=== PATIENT | female | born 1960 | race Caucasian/White ===

== ENCOUNTER 2017-07-17 18:16 | Observation (INO) | payer OTHER ==
[~2017-07-17] VITALS: Ht 167.6 cm; Wt 89.4 kg
[~2017-07-17 18:16] MED LIST: IBUPROFEN400 MG PO; LOESTRIN 1/21 TABLET PO
[2017-07-17 19:31] LABS: HEMATOCRIT 41.1 % (36.0-46.0); HEMOGLOBIN 14.8 G/DL (11.9-15.5); MCH 31.4 PG (29.0-34.0); MCV 87.3 FL (83-99); PLATELET COUNT 314 K/uL (156-360); RBC DIS.WIDTH-CV 11.6 % (11.8-14.6); RBC DIS.WIDTH-SD 37.2 % (39-53); RED BLOOD COUNT 4.71 M/uL (3.80-5.20); WHITE BLOOD COUNT 11.9 K/uL (4.1-10.2)
[2017-07-17 19:41] LABS: ALBUMIN 4.4 g/dL (3.2-4.8); CHLORIDE 108 mEq/L (99-109); POTASSIUM 3.7 mEq/L (3.7-5.4); SODIUM 138 mEq/L (136-147)
[2017-07-17 19:43] LABS: GLUCOSE 137 mg/dL (70-99)
[2017-07-17 19:44] LABS: TOTAL PROTEIN 7.6 g/dL (6.4-8.3)
[2017-07-17 19:45] LABS: TOTAL BILIRUBIN 0.9 mg/dL (0.0-1.0)
[2017-07-17 19:47] LABS: ALKALINE PHOSPHATASE 87 IU/L (3-129); CREATININE 1.1 mg/dL (0.6-1.3); GFR ESTIMATE (CALCULATED) 54 mL/min/
[2017-07-17 19:48] LABS: UREA NITROGEN (BUN) 16 mg/dL (9-23)
[2017-07-17 19:49] LABS: AST (GOT) 16 IU/L (2-34)
[2017-07-17 19:50] LABS: ALT (GPT) 19 IU/L (3-49)
[2017-07-17 20:41] LABS: LIPASE 10 U/L (1.0-51.0)
[2017-07-17 23:14] LABS: APPEARANCE CLEAR ((CLEAR)); BILIRUBIN NEGATIVE; BLOOD NEGATIVE; COLOR YELLOW ((YELLOW)); GLUCOSE (STRIP) NEGATIVE; KETONES 20; LEUKOCYTES NEGATIVE; NITRITE NEGATIVE; PROTEIN (STRIP) 30; UCUL ADDED? NO; UROBILINOGEN 0.2 MG/DL (0.2-1.0)
[2017-07-17 23:19] LABS: SPECIFIC GRAVITY > 1.060 (1.000-1.030)
[2017-07-17] MEDS ORDERED: ALEVE220 MG PO (23:56)
[2017-07-18 00:17] LABS: BASOPHIL (%) 0.5 % (0-1); BASOPHIL COUNT 0.1 K/uL (0-0.1); EOSINOPHIL (%) 0.6 % (0-5); EOSINOPHIL COUNT 0.1 K/uL (0-0.3); IMMATURE GRANULOCYTE (%) 0.6 % (0.0-0.7); LYMPHOCYTE (%) 14.7 % (15-42); LYMPHOCYTE COUNT 1.8 K/uL (1.0-2.8); MONOCYTE (%) 5.2 % (3-12); MONOCYTE COUNT 0.6 K/uL (0-0.8); NEUTROPHIL (%) 78.4 % (45-76); NEUTROPHIL COUNT 9.4 K/uL (1.8-6.4)
[2017-07-18 01:47] VITALS: BP 159/81
[2017-07-18 03:47] VITALS: BP 148/78
[2017-07-18 06:17] LABS: HEMATOCRIT 36.8 % (36.0-46.0); MCH 30.6 PG (29.0-34.0); PLATELET COUNT 247 K/uL (156-360); RBC DIS.WIDTH-CV 11.8 % (11.8-14.6); RBC DIS.WIDTH-SD 38.8 % (39-53); RED BLOOD COUNT 4.09 M/uL (3.80-5.20); WHITE BLOOD COUNT 8.4 K/uL (4.1-10.2)
[2017-07-18 06:22] LABS: HEMOGLOBIN 12.5 G/DL (11.9-15.5)
[2017-07-18 06:42] LABS: ALBUMIN 3.4 G/DL (3.2-4.8); ALKALINE PHOSPHATASE 62 IU/L (3-129); ALT (GPT) 11 IU/L (3-49); AST (GOT) 10 IU/L (2-34); CHLORIDE 111 MEQ/L (99-109); CREATININE 0.7 MG/DL (0.6-1.3); GFR ESTIMATE (CALCULATED) > 59 mL/min/; GLUCOSE 110 mg/dL (70-99); POTASSIUM 4.4 MEQ/L (3.7-5.4); SODIUM 140 MEQ/L (136-147); TOTAL PROTEIN 5.5 G/DL (6.4-8.3); UREA NITROGEN (BUN) 11 mg/dL (9-23)
[2017-07-18 08:21] VITALS: BP 159/69
[2017-07-18 11:44] VITALS: BP 145/86
[2017-07-18 15:41] VITALS: BP 153/90
[2017-07-18 20:18] VITALS: BP 139/78
[2017-07-19 00:12] VITALS: BP 128/75
[2017-07-19 03:33] VITALS: BP 139/88
[2017-07-19 07:12] VITALS: BP 120/80
[2017-07-19 11:35] VITALS: BP 128/78
[2017-07-19 16:01] VITALS: BP 132/82
[2017-07-20 00:26] VITALS: BP 113/69
[2017-07-20 07:58] VITALS: BP 105/61
[2017-07-20 15:41] VITALS: BP 144/83
== END 2017-07-20 16:20 | disposition home or self-care (01) ==
LOC: EME 18:16 → 2EAST 07-18 00:20 → EDOF 07-18 00:20 → 2EAST 07-18 00:20 → ENRESERV 07-18 00:21 → 2EAST 07-18 01:15
PROVIDERS: Thoracic Surgery (Cardiothoracic Vascular Surgery)
DX: K41.30 Unilateral femoral hernia, with obstruction, without gangrene, not specified as recurrent (principal); E86.0 Dehydration; Z90.710 Acquired absence of both cervix and uterus; Z88.5 Allergy status to narcotic agent
CPT/HCPCS: 72197; 74177; 76856; 80053; 81003; 83605; 83690; 85025; 85027; 99281; 99285; G0378; J1170; J1644; J1885; J2060; J2405; J3010; J7030; J7120

== ENCOUNTER 2017-07-27 10:53 | Day surgery (SDC) | payer OTHER ==
[~2017-07-27] VITALS: Ht 167.6 cm; Wt 89.4 kg
[~2017-07-27 10:53] MED LIST changes: +ALEVE220 MG PO; +KELNOR 1-351 EACH PO
[2017-07-27 11:30] VITALS: BP 128/85
[2017-07-27 11:51] LABS: INTER. NORMALIZED RATIO 1.1
[2017-07-27] MEDS ORDERED: NORCO 5/3251 TABLET PO (15:26)
[2017-07-27] MEDS ORDERED: COLACE100 MG PO (15:26)
[2017-07-27 15:56] VITALS: BP 106/64
[2017-07-27 16:50] VITALS: BP 100/65
[2017-07-27 18:10] VITALS: BP 99/61
== END 2017-07-27 18:22 | disposition home or self-care (01) ==
LOC: SDC 10:53
PROVIDERS: Thoracic Surgery (Cardiothoracic Vascular Surgery)
DX: K41.90 Unilateral femoral hernia, without obstruction or gangrene, not specified as recurrent (principal); K40.90 Unilateral inguinal hernia, without obstruction or gangrene, not specified as recurrent; D17.72 Benign lipomatous neoplasm of other genitourinary organ; Z90.710 Acquired absence of both cervix and uterus; Z82.49 Family history of ischemic heart disease and other diseases of the circulatory system
CPT/HCPCS: 85610; 85730; 88304; C1781; J0131; J0690; J0696; J1100; J1170; J2250; J2405; J2765; J3010; Q0175; S0020